=== PATIENT | female | born 1950 | race Caucasian/White ===

== ENCOUNTER → 2018-02-23 | Day surgery (SDC) | payer OTHER ==
--- NOTE | 2018-02-24 14:20 | PATH ---
Surgical Pathology Report Patient Name: SHELLEY TAN [facility]. Rec. #: [id number] /Age/Gender: 1950 (Age: 67) / F Account: [id number] Location: [facility] Taken: 02/23/2018 Received: 02/23/2018 Reported: 02/24/2018 Physicians: Shayna Andujar M.D. 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 Comment: Immunohistochemical stains performed and interpreted at [facility] show the following results: smooth muscle myosin heavy chain and p63 highlight the myoepithelial cell layer surrounding the ducts of the interest. Electronically Signed Reji Figueroa M.D. Gross Description Received in formalin labeled "right breast 8:00," are 4 capps-yellow, cylindrical portions of fibroadipose tissue ranging from 0.7-1.1 cm in length and averaging 0.1 cm in diameter. The specimens are submitted in toto in one cassette. Time to formalin fixation: Less than one minute Total formalin fixation time: Approximately 8 hours. /02/23/201802/23/2018
== END | disposition home or self-care (01) ==
LOC: JRADUS-SUR 08:42
PROVIDERS: ATTEND Internal Medicine Cardiovascular Disease
PROC: 0HBT3ZX Excision of Right Breast, Percutaneous Approach, Diagnostic (ICD-10-PCS; principal; 2018-02-23)
DX: D24.1 Benign neoplasm of right breast (principal)
CPT/HCPCS: 19083; 88305-TC; 88341-TC; 88342-TC; A4648

== ENCOUNTER 2022-01-28 10:46 | Emergency (ER) | payer OTHER ==
[2022-01-28 11:30] VITALS: BMI 28.1
[2022-01-28] MEDS ORDERED: morphine SULFATE 4 MG/ML VIAL IVPUSH ONE ×2 (12:18→13:45)
[2022-01-28] MEDS ORDERED: KETAMINE HCL 500 MG/10 ML VIAL ONE (14:14)
[2022-01-28] MEDS ORDERED: LORazepam 2 MG/ML SDV VIAL IVPUSH ONE (14:41)
[2022-01-28] MEDS ORDERED: LIDOCAINE VISCOUS 2% ORAL/TOP 15 ML UNIT-DOSE CUP MM ONE (14:59)
[2022-01-28] MEDS ORDERED: MAG HYDROX/AL HYDROX/SIMETH -MYLANTA- ORAL SUSPENSION PO ONE (14:59)
[2022-01-28] MEDS ORDERED: LIDOCAINE HCL 1%, 10 MG/ML (20ML VIAL) ONE (20:55)
[2022-01-28] MEDS ORDERED: PROPOFOL 200 MG/20 ML VIAL IVPUSH ONE (21:52)
[2022-01-28] MEDS ORDERED: PROPOFOL 20 ML ONE (21:54)
[2022-01-28 23:24] VITALS: BP 121/73; PULSE 90; RESP 18; TEMP 98.1
== END 2022-01-28 23:23 | disposition home or self-care (01) ==
LOC: JER 10:46
PROC: 3E033GC Introduction of Other Therapeutic Substance into Peripheral Vein, Percutaneous Approach (ICD-10-PCS; principal; 2022-01-28)
DX: S53.105A Unspecified dislocation of left ulnohumeral joint, initial encounter (principal); W00.9XXA Unspecified fall due to ice and snow, initial encounter
CPT/HCPCS: 70450-TC; 72125-TC; 73030-TC-LT-FY; 73060-TC-LT-FY; 73070-TC-LT-FY; 73090-TC-LT-FY; 73110-TC-LT-FY; 73130-TC-LT-FY; 99285-25

== ENCOUNTER 2022-07-24 10:30 | Day surgery (SDC) | payer OTHER ==
[2022-07-22 13:11] VITALS: BMI 27.7
[2022-07-24] MEDS ORDERED: PROPOFOL 80 ML ONE (11:05)
[2022-07-24 12:46] VITALS: TEMP 98
[2022-07-24 12:48] VITALS: PULSE 74; RESP 16
[2022-07-24 12:49] VITALS: BP 138/78
== END 2022-07-24 13:39 | disposition home or self-care (01) ==
LOC: FASU-ENDO 10:30
PROVIDERS: ATTEND Internal Medicine Gastroenterology
PROC: 0DBN8ZX Excision of Sigmoid Colon, Via Natural or Artificial Opening Endoscopic, Diagnostic (ICD-10-PCS; principal; 2022-07-24 11:51)
DX: Z12.11 Encounter for screening for malignant neoplasm of colon (principal); K63.5 Polyp of colon; R19.5 Other fecal abnormalities; K64.1 Second degree hemorrhoids
CPT/HCPCS: 88305-TC

== ENCOUNTER → 2024-11-15 | Day surgery (SDC) | payer OTHER | END | disposition home or self-care (01) | LOC: JRADIR 10:24 | PROVIDERS: ATTEND Internal Medicine Endocrinology, Diabetes & Metabolism | PROC: 0G9G3ZX Drainage of Left Thyroid Gland Lobe, Percutaneous Approach, Diagnostic (ICD-10-PCS; principal; 2024-11-15) | DX: E04.1 Nontoxic single thyroid nodule (principal) | CPT/HCPCS: 76942; 88173; 88305-TC ==